=== PATIENT | female | born 1995 | race Caucasian/White ===

== ENCOUNTER 2017-04-18 08:14 | Emergency (ER) | payer BC ==
[~2017-04-18] VITALS: Ht 162.6 cm; Wt 63.6 kg
[2017-04-18 08:17] VITALS: BP 122/58; TEMP 98.2
[2017-04-18 09:27] LABS: COLLECTION METHOD CLEAN CATCH
[2017-04-18 09:31] LABS: BASO % 0.2 % (0.0-2.0); EOS % 0.1 % (0-4.0); GRAN # 6.9 (1.4-6.5); GRAN % 71.8 % (42.2-75.2); HEMATOCRIT 41.3 % (37.0-47.0); LYMPH # 2.3 (1.2-3.4); MEAN CELL VOLUME 85 fl (80.0-100.0); MEAN CORPUSCULAR HEMOGLOBIN 29 pg (27.0-31.0); MEAN CORPUSCULAR HGB CONC 34 g/dl (33.0-37.0); MEAN PLATELET VOLUME 10.1 fl (7.4-10.4); MONO # 0.3 (0.1-0.6); MONO % 3.6 % (1.7-9.3); PLATELET COUNT 236 K/mm3 (130-400); RED BLOOD COUNT 4.89 M/mm3 (4.10-5.30); WHITE BLOOD COUNT 9.5 K/mm3 (4.8-10.8)
[2017-04-18 09:38] LABS: MUCOUS Present /lpf; PH 5 (5-8); URINE APPEARANCE Hazy; URINE BACTERIA Rare /hpf; URINE BILIRUBIN Negative (NEGATIVE); URINE BLOOD 1+ (NEGATIVE); URINE COLOR Yellow; URINE GLUCOSE Negative (NEGATIVE); URINE KETONE Negative (NEGATIVE); URINE LEUKOCYTE ESTERASE 1+ (NEGATIVE); URINE PROTEIN(semi-quant) Negative (NEGATIVE); URINE RBC None Seen /hpf; URINE UROBILINOGEN Negative (NEGATIVE)
[2017-04-18 09:39] LABS: URINE WBC 20-50 /hpf
[2017-04-18 10:17] LABS: ADJUSTED CALCIUM 8.7 mg/dL (8.4-10.2); ALBUMIN 4.9 gm/dL (3.5-5.0); BILIRUBIN,TOTAL 0.7 mg/dL (0.0-1.0); CALCIUM 9.4 mg/dL (8.4-10.2); CREATININE, serum 0.58 mg/dL (0.52-1.25); MAGNESIUM 1.5 mg/dL (1.6-2.3); PHOSPHOROUS 3.1 mg/dL (2.5-4.5); POTASSIUM 3.9 mmol/L (3.4-5.0); TOTAL PROTEIN 7.9 gm/dL (6.4-8.2)
[2017-04-18] MEDS ORDERED: FIORICET 325 MG1 TA1 PO (11:07)
[2017-04-18] MEDS ORDERED: PHENERGAN 25 TA25 MG PO (11:07)
[2017-04-18] MEDS ORDERED: CEFTIN500 MG PO (11:10)
[2017-04-18 12:22] VITALS: PULSE 74
== END 2017-04-18 12:22 | disposition home or self-care (01) ==
LOC: COL.ER 08:14
PROVIDERS: Emergency Medicine
DX: R51 Headache (principal); N39.0 Urinary tract infection, site not specified
CPT/HCPCS: J0696; J1200; J1885; J2550; J7030

== ENCOUNTER → 2017-05-18 | Outpatient (CLI) | payer BC ==
[~2017-05-18] MED LIST: CEFTIN500 MG PO; FIORICET 325 MG1 TA1 PO; PHENERGAN 25 TA25 MG PO
== END ==
LOC: COL.RAD 07:30
DX: N83.202 Unspecified ovarian cyst, left side (principal)

== ENCOUNTER 2018-12-29 15:35 | Emergency (ER) | payer OTHER, BC ==
[~2018-12-29] VITALS: Ht 162.6 cm; Wt 68.2 kg
[2018-12-29 16:22] VITALS: TEMP 98.7
[2018-12-29] MEDS ORDERED: NORCO 325 MG-51 TAB PO (20:22)
[2018-12-29] MEDS ORDERED: PRILOSEC 20MG20 MG PO (20:35)
[2018-12-29 21:09] VITALS: BP 124/86; PULSE 71
== END 2018-12-29 22:32 | disposition home or self-care (01) ==
LOC: COL.ER 15:35
DX: S63.501A Unspecified sprain of right wrist, initial encounter (principal); S50.02XA Contusion of left elbow, initial encounter; K58.9 Irritable bowel syndrome, unspecified; V43.52XA Car driver injured in collision with other type car in traffic accident, initial encounter
CPT/HCPCS: Q4050